=== PATIENT | female | born 1945 | race Caucasian/White ===

== ENCOUNTER → 2017-01-07 | Outpatient (CLI) | payer MEDICARE, OTHER ==
[~2017-01-07] MED LIST: BIO FLEX; CITA20SO PO; LOSA-35 PO; LYSI500T13 PO; POTA10TA86 PO; VENL150C PO
--- OUTSIDE RECORDS SUMMARY | 2017-01-07 12:50 | XMS REPORT | Continuity of Care Document ---
Author Author [facility] Organization [facility] Address Unknown Phone Unavailable Allergies Active Description Code Type Severity Reaction Onset Reported/Identified Relationship to Patient Clinical Status Yes No Known Drug Allergies [id number] Drug Allergy Unknown N/ A 02/14/2012 Medications Problems Date Dx Coded Attending Type Code Diagnosis Diagnosed By 02/14/2012 Ot 518.89 OTHER DISEASES OF LUNG, NEC 02/14/2012 Ot 786.2 COUGH 02/14/2012 Ot V12.61 PERSONAL HISTORY, PNEUMONIA (RECURRENT) 02/14/2012 Ot V15.82 HISTORY OF TOBACCO USE 04/16/2014 VASU HART MD Ot 569.0 ANAL RECTAL POLYP 04/16/2014 VASU HART MD Ot V16.0 FAMILY HX-GI MALIGNANCY 04/16/2014 VASU HART MD Ot V76.51 SCREEN MAL NEOP-COLON 06/02/2015 VLADIMIR GUEVARA, TREASURE Babcock Ot V76.12 02/07/2016 PEDRO PABLO SANTOYO APRN Ot M79.604 02/07/2016 PEDRO PABLO SANTOYO APRN Ot R22.41 02/24/2016 BERNARDA GUADALUPE Ot M25.561 PAIN IN RIGHT KNEE 02/24/2016 BERNARDA GUADALUPE Ot 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 [ WATSON] 02/24/2016 BERNARDA GUADALUPEP Ot M25.561 PAIN IN RIGHT KNEE 02/24/2016 BERNARDA GUADALUPEP Ot 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 [ WATSON] 02/29/2016 PEDRO PABLO SANTOYO APRN Ot M79.604 PAIN IN RIGHT LEG 02/29/2016 PEDRO PABLO SANTOYO APRN Ot R22.41 LOCALIZED SWELLING, MASS AND LUMP, RIGHT 03/15/2016 BERNARDA GUADALUPEP Ot M25.561 PAIN IN RIGHT KNEE 03/15/2016 BERNARDA GUADALUPE Ot 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 [ WATSON] 05/30/2016 Ot V76.12 OTH SCREEN MAMMO-MALIGN NEOPLASM OF ROSA 05/30/2016 Ot 793.89 OTH (ABN) FINDINGS ON RADIOLOGICAL EXAMI 05/30/2016 Ot V76.12 OTH SCREEN MAMMO-MALIGN NEOPLASM OF ROSA 05/30/2016 Ot 610.0 SOLITARY CYST OF BREAST 05/30/2016 COLIN PATEL MD Ot 627.2 SYMPT MENOPAUSE OR FEMALE CLIMACTERIC ST 05/30/2016 COLIN PATEL MD Ot 733.90 BONE CARTILAGE DIS NOS 05/30/2016 COLIN PATEL MD Ot V82.81 SCREENING FOR OSTEOPOROSIS 05/30/2016 COLIN PATEL MD Ot 627.2 SYMPT MENOPAUSE OR FEMALE CLIMACTERIC ST 05/30/2016 COLIN PATEL MD Ot 719.46 JOINT PAIN-L/LEG 05/30/2016 COLIN PATEL MD Ot 721.3 LUMBOSACRAL SPONDYLOSIS 05/30/2016 COLIN PATEL MD Ot 722.52 LUMB/LUMBOSAC DISC DEGEN 05/30/2016 COLIN PATEL MD Ot V76.12 OTH SCREEN MAMMO-MALIGN NEOPLASM OF ROSA 05/30/2016 TANNER GUEVARA, VASU Serna Ot V72.84 EXAM PRE-OPERATIVE NOS 05/30/2016 COLIN PATEL MD Ot 721.0 CERVICAL SPONDYLOSIS 05/30/2016 COLIN PATEL MD Ot 722.52 LUMB/LUMBOSAC DISC DEGEN 05/30/2016 TREASURE GILBERT MD Ot V76.12 OTH SCREEN MAMMO-MALIGN NEOPLASM OF ROSA 05/30/2016 PEDRO PABLO SANTOYO APRN Ot M79.604 PAIN IN RIGHT LEG 05/30/2016 PEDRO PABLO SANTOYO APRN Ot R22.41 LOCALIZED SWELLING, MASS AND LUMP, RIGHT 05/30/2016 BERNARDA GUADALUPE Ot M25.561 PAIN IN RIGHT KNEE 05/30/2016 BERNARDA GUADALUPE Ot 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 [ WATSON] 05/31/2016 TREASURE GILBERT MD Ot Z12.31 ENCNTR SCREEN MAMMOGRAM FOR MALIGNANT NE 06/08/2016 VLADIMIR GUEVARA, TREASURE Babcock Ot Z12.31 ENCNTR SCREEN MAMMOGRAM FOR MALIGNANT NE 06/11/2016 PEDRO PABLO SANTOYO ELEMENTARY TEACHER Ot R92.2 INCONCLUSIVE MAMMOGRAM 06/12/2016 PEDRO PABLO SANTOYO APRN Ot R92.8 OTH ABN AND INCONCLUSIVE FINDINGS ON DX 06/19/2016 Ot V76.12 OTH SCREEN MAMMO-MALIGN NEOPLASM OF ROSA 06/19/2016 Ot 793.89 OTH (ABN) FINDINGS ON RADIOLOGICAL EXAMI 06/19/2016 Ot V76.12 OTH SCREEN MAMMO-MALIGN NEOPLASM OF ROSA 06/19/2016 Ot 610.0 SOLITARY CYST OF BREAST 06/19/2016 COLIN PATEL MD Ot 627.2 SYMPT MENOPAUSE OR FEMALE CLIMACTERIC ST 06/19/2016 COLIN PATEL MD Ot 733.90 BONE CARTILAGE DIS NOS 06/19/2016 COLIN PATEL MD Ot V82.81 SCREENING FOR OSTEOPOROSIS 06/19/2016 COLIN PATEL MD Ot 627.2 SYMPT MENOPAUSE OR FEMALE CLIMACTERIC ST 06/19/2016 COLIN PATEL MD Ot 719.46 JOINT PAIN-L/LEG 06/19/2016 COLIN PATEL MD Ot 721.3 LUMBOSACRAL SPONDYLOSIS 06/19/2016 COLIN PATEL MD Ot 722.52 LUMB/LUMBOSAC DISC DEGEN 06/19/2016 COLIN PATEL MD Ot V76.12 OTH SCREEN MAMMO-MALIGN NEOPLASM OF ROSA 06/19/2016 TANNER GUEVARA, VASU Serna Ot V72.84 EXAM PRE-OPERATIVE NOS 06/19/2016 COLIN PATEL MD Ot 721.0 CERVICAL SPONDYLOSIS 06/19/2016 COLIN PATEL MD Ot 722.52 LUMB/LUMBOSAC DISC DEGEN 06/19/2016 TREASURE GILBERT MD Ot V76.12 OTH SCREEN MAMMO-MALIGN NEOPLASM OF ROSA 06/19/2016 PEDRO PABLO SANTOYO APRN Ot M79.604 PAIN IN RIGHT LEG 06/19/2016 PEDRO PABLO SANTOYO APRN Ot R22.41 LOCALIZED SWELLING, MASS AND LUMP, RIGHT 06/19/2016 BERNARDA GUADALUPE Ot M25.561 PAIN IN RIGHT KNEE 06/19/2016 BERNARDA GUADALUPE [facility] Ot 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 Visit Date/Time Discharge Status Pt. Type Provider Facility Loc./Unit Complaint [id number] 05/12/2015 12:54:00 2014 23:59:59 CLS Outpatient TREASURE GILBERT MD [facility] RAD SCREENING [id number] 06/23/2014 08:46:00 2013 23:59:59 CLS Outpatient COLIN PATEL MD [facility] RAD HYPER FEFLEXIA/ HX OF SPINAL INJURY [id number] 04/16/2014 07:29:00 2013 11:10:00 DIS Outpatient VASU HART MD [facility] SDC POLYPS [id number] 04/14/2014 07:18:00 2013 23:59:59 CLS Outpatient VASU HART MD [facility] PREOP POLYPS [id number] 03/12/2014 11:12:00 2013 23:59:59 CLS Outpatient COLIN PATEL MD [facility] RAD SCREENING [id number] 10/02/2013 10:44:00 2012 23:59:59 CLS Outpatient COLIN PATEL MD [facility] RAD POST MENOPAUSAL [id number] 09/14/2013 16:05:00 2012 23:59:59 CLS Outpatient COLIN PATEL MD [facility] RAD RT HIP PAIN [id number] 01/07/2017 12:46:00 ACT Outpatient PEDRO PABLO SANTOYO APRN [facility] RAD LEFT BREAST NODULES-6 MO F/U [id number] 06/08/2016 07:28:00 ACT Outpatient PEDRO PABLO SANTOYO APRN [facility] RAD ASYMMETRY L BREAST [id number] 05/30/2016 10:55:00 ACT Outpatient TREASURE GILBERT MD [facility] RAD SCREENING [id number] 02/23/2016 07:14:00 ACT Outpatient BERNARDA GUADALUPE [facility] RAD R KNEE PAIN,BAKERS CYST [id number] 02/06/2016 12:53:00 ACT Outpatient PEDRO PABLO SANTOYO APRN [facility] RAD RT LEG SWELLING/PAIN [id number] 02/03/2013 07:25:00 Document Registration [id number] 01/20/2013 14:30:00 Document Registration [id number] 02/14/2012 10:24:00 Document Registration [id number] 12/12/2011 13:16:00 Document Registration
--- NOTE | 2017-01-07 18:36 | Diagnostic Imaging Report ---
Left breast diagnostic mammogram. INDICATION: Left breast nodules-6 MO F/U COMPARISON: 06/08/16. The current study was also evaluated with a Computer Aided Detection (CAD) system. FINDINGS: Heterogeneously dense parenchyma is seen. This may decrease mammographic sensitivity. Three subcentimeter smoothly marginated nodules in the medial aspect of the left breast are again noted without significant change. IMPRESSION: Smoothly marginated subcentimeter nodules in the medial aspect of the left breast are again seen. Prior ultrasound demonstrated 2 simple cysts and failed to evaluate the third nodule which is also probably benign based on the mammographic appearance. Another followup when the patient is due for her bilateral mammogram is recommended in May 2017. ACR BI-RADS Category 3: Probably benign findings. Result letter will be mailed to the patient. Note: At least 10% of breast cancer is not imaged by mammography. Dictated by: Dictated on workstation # [id number]
== END ==
LOC: RAD 12:46
PROVIDERS: ATTEND Nurse Practitioner Family
DX: N63 Unspecified lump in breast (principal)

== ENCOUNTER → 2018-07-14 | Outpatient (CLI) | payer MEDICARE, OTHER ==
--- NOTE | 2018-07-14 10:35 | Diagnostic Imaging Report ---
INDICATION: Routine screening. Comparison is made with prior mammogram from 05/30/2016 and 05/12/2015. 2-D and 3-D bilateral screening mammography was performed with a Computer Aided Detection (CAD) system. FINDINGS: Both breasts are heterogeneously dense, limiting the sensitivity of mammography. Circumscribed nodular densities in left breast are noted. Some of these nodules are slightly larger and some are slightly smaller consistent with waxing and waning of cysts. There are benign calcifications bilaterally. No spiculated mass or malignant appearing microcalcifications are seen. The axillae are unremarkable. IMPRESSION: No mammographic features suspicious for malignancy are identified. ACR BI-RADS Category 2: Benign findings. Result letter will be mailed to the patient. Note: At least 10% of breast cancer is not imaged by mammography. Dictated by: Dictated on workstation # [id number]
== END ==
LOC: RAD 08:18
PROVIDERS: ATTEND Family Medicine
DX: Z12.31 Encounter for screening mammogram for malignant neoplasm of breast (principal)
CPT/HCPCS: 77067

== ENCOUNTER → 2019-08-04 | Outpatient (CLI) | payer MEDICARE, OTHER ==
--- NOTE | 2019-08-04 12:38 | Diagnostic Imaging Report ---
INDICATION: Routine screening. COMPARISON: Comparison is made with prior mammogram from 07/14/2018 and 05/30/2016. 2-D and 3-D bilateral screening mammography was performed. The current study was also evaluated with a Computer Aided Detection (CAD) system. 3-D tomosynthesis was also performed and reviewed. FINDINGS: Both breasts remain heterogeneously dense, limiting the sensitivity of mammography. Benign calcifications are again noted bilaterally. Circumscribed nodules in left breast are stable. No spiculated mass or malignant-appearing microcalcifications are seen. Axillae are unremarkable. IMPRESSION: No mammographic features suspicious for malignancy are identified. ACR BI-RADS Category 2: Benign findings. Result letter will be mailed to the patient. Note: At least 10% of breast cancer is not imaged by mammography. Dictated by: Dictated on workstation # [id number]
== END ==
LOC: RAD 10:58
PROVIDERS: ATTEND Nurse Practitioner Family
DX: Z12.31 Encounter for screening mammogram for malignant neoplasm of breast (principal)
CPT/HCPCS: 77067

== ENCOUNTER → 2019-12-08 | Outpatient (CLI) | payer MEDICARE, OTHER ==
--- NOTE | 2019-12-08 10:47 | Diagnostic Imaging Report ---
INDICATION: Knee pain. TECHNIQUE: Three views of the left knee were obtained. FINDINGS: The alignment is normal. There are mild degenerative changes. There is no fracture or dislocation. The soft tissues are unremarkable. IMPRESSION: Mild degenerative changes; otherwise, unremarkable. Dictated by: Dictated on workstation # [id number]
== END ==
LOC: RAD 10:08
PROVIDERS: ATTEND Nurse Practitioner Family
DX: M17.12 Unilateral primary osteoarthritis, left knee (principal)
CPT/HCPCS: 73562

== ENCOUNTER → 2019-12-17 | Outpatient (CLI) | payer MEDICARE, OTHER ==
--- NOTE | 2019-12-17 19:42 | Diagnostic Imaging Report ---
EXAMINATION: Magnetic resonance imaging of the left knee without intravenous contrast DATE: December 17, 2019. COMPARISON: Knee radiographs December 08, 2019. INDICATION: 74-year-old female, left knee pain and swelling. Sense of instability. TECHNIQUE: Multiplanar, multisequence non contrast enhanced MR imaging was accomplished. FINDINGS: MENISCI: There is a complex multidirectional tear involving the body and posterior horn of the medial meniscus with full-thickness radial components of the tear involving the posterior root attachment of the medial meniscus. There is 2-3 mm current medial meniscal extrusion. There is a very small free edge tear involving the posterior horn of the lateral meniscus. LIGAMENTS AND TENDONS: The anterior and posterior cruciate ligaments are intact. The medial collateral ligament is intact. The iliotibial band, mid third lateral capsular ligament, fibular collateral ligament, biceps femoris tendon and conjoined tendon are intact. The quadriceps tendon and patella ligament are intact. JOINT: There is approximately 50-75% cartilage loss involving the medial margin of the lateral patellar facet cartilage. There is abnormal signal and underlying subchondral edema involving the median patellar ridge. The medial and lateral compartment cartilage is grossly intact. There is a trace knee joint effusion. There is no identified intra-articular body. BONE: There is edema-like signal in the medial femoral condyle with a low signal subchondral line likely relating to a nondisplaced subchondral fracture. This potentially could be fatigue or insufficiency related. Recommend correlation with history. BURSAE AND SOFT TISSUES: There is a partially ruptured Garcia's cyst. IMPRESSION: 1. Extensive complex tear of the medial meniscus, as described above, with currently 2-3 mm medial meniscal extrusion. 2. Small free edge tear involving the posterior horn of the lateral meniscus. 3. Intact anterior and posterior cruciate ligaments. Additional ligaments and tendons are intact. 4. Nondisplaced subchondral fracture of the medial femoral condyle. This potentially could be fatigue or insufficiency related. Recommend correlation with patient history. 5. Moderate patellofemoral compartment osteoarthritis. Small knee joint effusion. Report was faxed to the office of GEOFF Gray at 7:39 p.m., by ezequiel. Dictated by: Dictated on workstation # [id number]
== END ==
LOC: RAD 16:26
PROVIDERS: ATTEND Nurse Practitioner Family
DX: S83.242A Other tear of medial meniscus, current injury, left knee, initial encounter (principal); S83.282A Other tear of lateral meniscus, current injury, left knee, initial encounter; S72.435A Nondisplaced fracture of medial condyle of left femur, initial encounter for closed fracture; M17.12 Unilateral primary osteoarthritis, left knee; M25.462 Effusion, left knee
CPT/HCPCS: 73721

== ENCOUNTER → 2020-01-07 | Outpatient (CLI) | payer MEDICARE, OTHER ==
--- NOTE | 2020-01-07 15:02 | Diagnostic Imaging Report ---
INDICATION: Palpable lump in the left breast. COMPARISON: Correlation is made with prior mammogram from 08/04/2019 and 07/14/2018. EXAMINATION: Unilateral left 2D and 3D diagnostic mammography was performed. A BB marker was placed at the area of palpable abnormality in the medial left breast. FINDINGS: Left breast remains heterogeneously dense, limiting the sensitivity of mammography. There is a circumscribed benign-appearing lesion just deep to the skin surface in the medial left breast, as seen on the CC views. This is not well seen on the MLO or ML views. No other mass is identified. No malignant appearing microcalcifications are seen. IMPRESSION: Circumscribed nodule in the medial left breast, perhaps accounting for the patient's palpable abnormality. Further evaluation of the medial left breast with ultrasound is recommended and will be performed today. ACR BI-RADS Category 0: Incomplete. (Needs additional imaging evaluation). Result letter will be mailed to the patient. Note: At least 10% of breast cancer is not imaged by mammography. Dictated by: Dictated on workstation # [id number]
--- NOTE | 2020-01-07 15:09 | Diagnostic Imaging Report ---
INDICATION: Left breast lump. COMPARISON: Correlation is made with diagnostic mammogram earlier the same day. FINDINGS: Sonographic interrogation of the palpable lump in the left breast was performed. There is a simple cyst at the 8:30 location, 6 cm from the nipple measuring 9 mm x 8 mm x 10 mm. This corresponds to the circumscribed density noted mammographically. No solid lesion is detected. IMPRESSION: Simple cyst at 8:30 location in the left breast, 6 cm from the nipple. This does correspond to the palpable and mammographic abnormality. Patient may return to routine annual screening mammography. ACR BI-RADS Category 2: Benign findings. Dictated by: Dictated on workstation # [id number]
== END ==
LOC: RAD 13:24
PROVIDERS: ATTEND Nurse Practitioner Family
DX: N60.02 Solitary cyst of left breast (principal)
CPT/HCPCS: 76642

== ENCOUNTER 2020-05-12 11:55 | Emergency (ER) | payer MEDICARE, OTHER ==
[~2020-05-12] VITALS: Ht 166 cm; Wt 60.0 kg
--- NOTE | 2020-05-12 12:13 | ED EENT ---
History of Present Illness General Chief Complaint: Nasal Problems Stated Complaint: NOSE BLEED History of Present Illness Date Seen by Provider: May 12, 2020 Time Seen by Provider: 11:55 Initial Comments 74-year-old female brought in for epistaxis by Dr. Messina. She awoke this morning and was noted to have bleeding from both nares. It improved and then returned approximately 11:[address] Messina cauterized in the office, but the bleeding continued. The patient denies taking anticoagulants or aspirin. She does take Aleve occasionally for joint pain. She's never had problems with this in the past. She denies any nausea or vomiting. No trauma to her nose. Timing/Duration: this morning Location: nose Allergies and Home Medications Allergies Coded Allergies: No Known Drug Allergies (Unverified , 02/14/12) Home Medications Citalopram Hydrobromide 20 Mg/10 Ml Solution, 20 MG PO DAILY, (Reported) Losartan/Hydrochlorothiazide 1 Each Tablet, 1 EACH PO DAILY, (Reported) Lysine Hcl 500 Mg Tablet, 500 MG PO DAILY, (Reported) Potassium Chloride 10 Meq Tablet.sa, 1 EACH PO DAILY, (Reported) [Bio Flex ] , BID, (Reported) Patient Home Medication List Home Medication List Reviewed: Yes Review of Systems Review of Systems Constitutional: no symptoms reported, see HPI Nose: see HPI, epistaxis All Other Systems Reviewed Negative Unless Noted: Yes Past Urckkep-Kkzcgq-Ltkcwh Hx Past Med/Social Hx: Reviewed Nursing Past Med/Soc Hx Immunizations Up To Date Date of Pneumonia Vaccine: Oct 16, 2011 Physical Exam Vital Signs Vital Signs - First Documented 05/12/20 11:58 Temp 37.1 Pulse 88 Resp 20 B/P (MAP) 186/108 (134) Pulse Ox 97 O2 Delivery Room Air Height, Weight, BMI Height: 5'5.00" Weight: 138lbs. oz. 62.537635pe; BMI Method: General Appearance: WD/WN, no apparent distress Eyes: bilateral eye normal inspection, bilateral eye PERRL, bilateral eye EOMI Ears: bilateral ear auricle normal, bilateral ear canal normal, bilateral ear TM normal Nose: normal inspection (graying noted to medial aspect, right nare from cautery); No active bleeding, No discharge Mouth/Throat: normal mouth inspection, pharynx normal (No post nasal bleeding or drainage visualized) Neck: non-tender, full range of motion, supple, normal inspection Cardiovascular: normal peripheral pulses, regular rate, rhythm Respiratory: chest non-tender, lungs clear, normal breath sounds Gastrointestinal: normal bowel sounds, non tender, soft Neurologic/Psychiatric: no motor/sensory deficits, alert, normal mood/affect, oriented x 3 Skin: normal color, warm/dry Procedures/Interventions Nasal : Nasal Location: Right Nasal Drops Instilled: Afrin Nasal Procedures: Hemostatic Nasal Ballon (soaked in TXA.) Progress Patient tolerated insertion. Will leave in place and monitor. Progress/Results/Core Measures Results/Orders My Orders Orders - LORI PABON Hydralazine Tablet (Apresoline Tablet) (05/12/20 12:45) Oxymetazoline 0.05% Nasal [place] (Afrin 0. (05/12/20 21:00) Tranexamic Acid Injection (Cyklokapron I (05/12/20 13:00) Oxymetazoline 0.05% Nasal [place] (Afrin 0. (05/12/20 12:59) Medications Given in ED Current Medications Medications Dose Ordered Sig/Ancelmo Route Start Time Stop Time Status Last Admin Dose Admin Hydralazine HCl 10 mg ONCE ONCE PO 05/12/20 12:45 05/12/20 12:46 DC 05/12/20 13:03 10 MG Tranexamic Acid 10 MG/KG ONCE ONCE IV 05/12/20 13:00 05/12/20 13:01 DC 05/12/20 13:02 500 MG Vital Signs/I&O 05/12/20 11:58 Temp 37.1 Pulse 88 Resp 20 B/P (MAP) 186/108 (134) Pulse Ox 97 O2 Delivery Room Air Progress Progress Note : Time: 11:55 Progress Note Patient seen and evaluated, since no active bleeding at this time we'll continue to monitor can consider using TXA on Rhino Packing, if symptoms return. 1245 bleeding resumed from right nare, will insert rhino packing soaked with TXA. Hydralazine 10mg for B/P 165/105. 1345 Rapid Rhino with TXA in place for 45 min, no Post nasal bleeding, removed and 2x2 place, with ice pack to nose. Will monitor. B/P 140/80. Patient's updated on status. 1415 no bleeding from nose and no PND. Packing changed and trace dried blood on 2x2. New packing placed, she will remove at 1700. Discharge instructions and return precautions reviewed with the patient. All questions answered. Departure Impression Primary Impression: Epistaxis Additional Impression: Hypertension Qualified Codes: I10 - Essential (primary) hypertension Disposition: HOME, SELF-CARE Condition: Improved Departure-Patient Inst. Decision time for Depature: 14:15 Referrals: TREASURE MESSINA MD (PCP/Family) Primary Care Physician Patient Instructions: Nosebleeds (DC) Add. Discharge Instructions: Use Afrin nasal spray 2 sprays every 4 hours for the next 3 days. If bleeding returns, 2 sprays of Afrin, pack with gauze and applied gentle pressure externally and ice pack Follow-up with Dr. Messina, as needed. Return to the emergency department for new, urgent health care needs. All discharge instructions reviewed with patient and/or family. Voiced understanding. Copy Copies To 1: TREASURE MESSINA MD, AMY ARNP May 12, 2020 12:13
--- NOTE | 2020-05-12 12:38 | NUR ---
PT HAS NO FURTHER BLEEDING AT THIS TIME, WILL CONTINUE TO MONITOR.
[2020-05-12] MEDS ORDERED: OXYMETAZOLINE (AFRIN) 0.05% NA 30 ML BTL ONE (12:59)
[2020-05-12] MEDS ORDERED: TRANEXAMIC ACID 100 MG/ML 10 ML INJECTION IV ONE (13:00)
--- NOTE | 2020-05-12 14:27 | NUR ---
ASSUMED CARE OF PT.
--- NOTE | 2020-05-12 14:34 | NUR ---
LORI IN TALKING TO THE PT AT THIS TIME
[2020-05-12 14:43] VITALS: BP 131/79
[2020-05-12] MEDS ORDERED: OXYMETAZOLINE (AFRIN) 0.05% NA 30 ML BTL SCH (21:00)
== END 2020-05-12 14:43 | disposition home or self-care (01) ==
LOC: EDUNIT# 11:55 → ER 11:56
DX: I10 Essential (primary) hypertension (principal)
CPT/HCPCS: 99283

== ENCOUNTER → 2020-09-20 | Outpatient (CLI) | payer MEDICARE, OTHER ==
--- NOTE | 2020-09-20 14:28 | Diagnostic Imaging Report ---
INDICATION: Screening. TECHNIQUE: The current study was also evaluated with a Computer Aided Detection (CAD) system. 3-D Tomographic imaging was also performed. COMPARISON: 01/07/2020, 08/04/2019, and 07/14/2018. FINDINGS: The fibroglandular tissue is heterogeneously dense bilaterally. There is an unchanged well-circumscribed density in the medial left breast. There is an additional nodular density in the medial left breast which is slightly more prominent on today's examination. There are benign type calcifications. There is no spiculated lesion or suspicious calcification identified. The skin, nipples, and axillae are unremarkable. IMPRESSION: A small nodular density in the medial left breast has increased in conspicuity since the prior examination. Further evaluation with spot compression views and ultrasound is recommended. ACR BI-RADS Category 0: Incomplete. (Needs additional imaging evaluation). Result letter will be mailed to the patient. Note: At least 10% of breast cancer is not imaged by mammography. Dictated by: Dictated on workstation # [id number]
== END ==
LOC: RAD 10:30
PROVIDERS: ATTEND Nurse Practitioner Family
DX: Z12.31 Encounter for screening mammogram for malignant neoplasm of breast (principal)
CPT/HCPCS: 77063; 77067

== ENCOUNTER → 2020-10-05 | Outpatient (CLI) | payer MEDICARE, OTHER ==
--- NOTE | 2020-10-05 14:33 | Diagnostic Imaging Report ---
INDICATION: Left breast density. Patient presents for additional views. COMPARISON: Correlation is made with prior mammograms dating back to 2013. TECHNIQUE: Unilateral left 2D and 3D diagnostic mammography was performed including spot compression CC, rolled CC, and conventional 90 degree lateral views. FINDINGS: The left breast is heterogeneously dense. The circumscribed nodule in the medial aspect of the left breast, lateral to the dominant circumscribed nodule, has been present on studies dating back to 2016. In fact, in 2016 the lesion was actually larger. This most likely represents a small cyst. No malignant appearing microcalcifications are seen. IMPRESSION: Benign findings in the left breast. The patient may return to routine annual screening mammography. ACR BI-RADS Category 2: Benign findings. Result letter will be mailed to the patient. Note: At least 10% of breast cancer is not imaged by mammography. Dictated by: Dictated on workstation # [id number]
== END ==
LOC: RAD 13:45
PROVIDERS: ATTEND Nurse Practitioner Family
DX: R92.2 Inconclusive mammogram (principal)
CPT/HCPCS: 77065; G0279

== ENCOUNTER → 2020-12-06 | Outpatient (CLI) | payer MEDICARE, OTHER ==
--- NOTE | 2020-12-06 14:00 | Diagnostic Imaging Report ---
INDICATION: Postmenopausal state. COMPARISON: October 02, 2013. FINDINGS: AP Spine L1-L4: [BMD (g/cm2): 1.061] [T-Score: -1.2] [Z-Score: 0.7] [BMD Previous: 1.205] [BMD % Change: -12.0] LT Hip Neck: [BMD (g/cm2): 0.759] [T-Score: -2.0] [Z-Score: -0.1] LT Hip Total: [BMD (g/cm2):0.779] [T-Score:-1.8] [Z-Score: -0.1] [BMD Previous: 0.856] [BMD % Change: -9.0] RT Hip Neck: [BMD (g/cm2):0.718] [T-Score:-2.3] [Z-Score:-0.3] RT Hip Total: [BMD (g/cm2):0.776] [T-score:-1.8] [Z-Score:-0.1] [BMD Previous:0.865] [BMD % Change:-10.3] *Indicates significant change from prior examination based on 95% confidence level. World Health Organization criteria for BMD interpretation classify patients as Normal (T-score at or above -1.0), Osteopenic (T-score between -1.0 and -2.5) or Osteoporotic (T-score at or below -2.5). LIMITATIONS AND MODIFICATION: None. FRACTURE RISK (FRAX SCORE): The ten year probability of (%): Major Osteoporotic Fracture: [21.2] Hip Fracture: [5.9] IMPRESSION: 1. Osteopenia (Low bone mass). 2. No significant change in bone mineral density since prior examination. 3. See below National Osteoporosis Foundation guidelines on when to potentially initiate pharmacologic therapy. Based on the National Osteoporosis Foundation Guidelines, pharmacologic treatment should be initiated in any of the following, unless clinical conditions suggest otherwise: * Any patient with prior fragility fracture of the hip or vertebrae. A spine fracture indicates 5X risk for subsequent spine fracture and 2X risk for subsequent hip fracture. * Osteoporosis (T-score <-2.5). * Postmenopausal women and men age 50 and older with low bone mass/osteopenia (T-score between -1.0 and -2.5) by DXA and 10-year major osteoporotic fracture greater than 20% or a 10-year probability of hip fracture greater than 3%. These fracture risks are supplied above in the FRAX score, if applicable. * Clinician judgement and/or patient preferences may indicate treatment for people with 10-year fracture probabilities above or below these levels. Dictated by: Dictated on workstation # [id number]
== END ==
LOC: RAD 12:30
PROVIDERS: ATTEND Family Medicine
DX: M85.89 Other specified disorders of bone density and structure, multiple sites (principal); E55.9 Vitamin D deficiency, unspecified; Z78.0 Asymptomatic menopausal state
CPT/HCPCS: 77080

== ENCOUNTER 2021-08-07 05:36 | Outpatient (RCR) | payer MEDICARE, OTHER ==
[2021-08-02 12:17] VITALS: BP 146/90
[2021-08-02 13:03] LABS: BASOPHILS % (AUTO) 1 % (0-10); EOSINOPHILS # (AUTO) 0.1 10^3/uL (0.0-0.3); EOSINOPHILS % (AUTO) 2 % (0-10); HEMATOCRIT 42 % (35-52); HEMOGLOBIN 14.2 g/dL (11.5-16.0); LYMPHOCYTES % (AUTO) 18 % (12-44); MEAN CORPUSCULAR HEMOGLOBIN 31 pg (25-34); MEAN CORPUSCULAR HGB CONC 34 g/dL (32-36); MEAN CORPUSCULAR VOLUME 93 fL (80-99); MEAN PLATELET VOLUME 9.4 fL (9.0-12.2); MONOCYTES # (AUTO) 0.5 10^3/uL (0.0-1.0); MONOCYTES % (AUTO) 9 % (0-12); NEUTROPHILS # (AUTO) 3.8 10^3/uL (1.8-7.8); NEUTROPHILS % (AUTO) 70 % (42-75); PLATELET COUNT 263 10^3/uL (130-400); WHITE BLOOD COUNT 5.4 10^3/uL (4.3-11.0)
[2021-08-02 13:10] LABS: POTASSIUM 3.5 MMOL/L (3.6-5.0)
[2021-08-02 13:11] LABS: CALCIUM 9.2 MG/DL (8.5-10.1); INR 0.9 (0.8-1.4); PROTHROMBIN TIME PATIENT 12.5 SEC (12.2-14.7)
[2021-08-02 13:13] LABS: TOTAL PROTEIN 6.9 GM/DL (6.4-8.2)
[2021-08-02 13:14] LABS: BILIRUBIN,TOTAL 0.4 MG/DL (0.1-1.0)
[2021-08-02 13:16] LABS: CREATININE SERUM 0.67 MG/DL (0.60-1.30)
[2021-08-02 13:20] LABS: BILIRUBIN,URINE NEGATIVE (NEGATIVE); CLARITY,URINE CLEAR; COLOR,URINE YELLOW; GLUCOSE, URINE (UA) NEGATIVE (NEGATIVE); KETONES,URINE NEGATIVE (NEGATIVE); LEUKOCYTE ESTERASE ,URINE NEGATIVE (NEGATIVE); NITRITE,URINE NEGATIVE (NEGATIVE); PROTEIN,URINE NEGATIVE (NEGATIVE)
--- NOTE | 2021-08-02 13:21 | Diagnostic Imaging Report ---
EXAMINATION: CHEST (PA AND LATERAL) CLINICAL INDICATION: 75-year-old female, preoperative exam prior to knee replacement. COMPARISON: May 23, 2011. FINDINGS: Heart size and mediastinal contours are unchanged. There is no identified pneumothorax. There is no pleural effusion. There is no identified focal airspace consolidation. IMPRESSION: 1. No identified acute cardiopulmonary abnormality. Dictated by: Dictated on workstation # [id number]
[2021-08-02 13:26] LABS: ERYTHROCYTE SEDIMENTATION RATE 9 MM/HR (0-30)
[2021-08-02 14:05] LABS: BACTERIA,URINE NEGATIVE /HPF; SQUAMOUS EPITHELIAL CELL,UR 0-2 /HPF
[~2021-08-07] VITALS: Ht 165.1 cm; Wt 61.3 kg
[~2021-08-07 05:36] MED LIST changes: +AMLO-251 PO; +DULO60CA59 PO; +HYDR25TA4 PO; +LOSA100T57 PO; +POTA10TA36 PO
== END 2021-08-07 08:52 | disposition home or self-care (01) ==
LOC: PREOP 05:36
PROVIDERS: ATTEND Orthopaedic Surgery
DX: Z01.812 Encounter for preprocedural laboratory examination (principal); Z01.810 Encounter for preprocedural cardiovascular examination; M17.12 Unilateral primary osteoarthritis, left knee
CPT/HCPCS: 36415; 71046; 80053; 81000; 85025; 85610; 85652; 86850; 86900; 86901; 87081; 87635; 93005

== ENCOUNTER 2021-08-09 06:06 | Inpatient (IN) | payer MEDICARE, OTHER ==
--- NOTE | 2021-08-03 06:09 | HISTORY AND PHYSICAL ---
DATE OF SERVICE: ADMISSION HISTORY AND PHYSICAL This will be for inpatient admission on 08/09/2021 for left total knee arthroplasty. The patient will require regular inpatient admission due to pain management, need for physical therapy and comorbidities. HISTORY OF PRESENT ILLNESS: The patient is a 75-year-old female with longstanding progressive left knee pain. She has undergone treatment with injections as well as arthroscopy. She has a large osteochondral defect of her medial compartment with associated medial arthrosis. Due to functional impairment and failure to improve with conservative measures, the patient has elected to proceed with surgical intervention. REVIEW OF SYSTEMS: No chest pain, no shortness of breath, no dysuria. PAST MEDICAL HISTORY: Allergic rhinitis, depression, fatigue, hypertension. PAST SURGICAL HISTORY: Right knee arthroscopy and left knee arthroscopy. MEDICATIONS: Cymbalta, potassium, losartan, esterase, vitamin D. SOCIAL HISTORY: The patient denies alcohol and tobacco use. ALLERGIES: No known drug allergies. PHYSICAL EXAMINATION: GENERAL: The patient is well-developed, well-nourished, in no acute distress. HEENT: Normocephalic, atraumatic. Pupils are equal, round and reactive to light. Oropharynx is clear. NECK: Supple, no lymphadenopathy. LUNGS: Clear to auscultation bilaterally. HEART: Regular rate and rhythm. ABDOMEN: Soft, nontender, nondistended. EXTREMITIES: The left knee demonstrates varus alignment. She has large effusion. There is no erythema or warmth. She ambulates with an antalgic gait. Range of motion is 0/120. No varus or valgus laxity. Negative anterior and posterior drawer. IMPRESSION: Severe left knee osteoarthritis, unresponsive to conservative measures. PLAN: Left total knee arthroplasty. The risks, benefits, options, ramifications and recovery have been discussed at length with the patient. She understands and wishes to proceed. This will be for inpatient admission on 08/09/2021 Job ID: [id number] DocumentID: [id number] Dictated Date: 07/24/2021 10:55:21 Digital Design Engineer Date: 07/24/2021 11:18:50 Dictated By: SOBEIDA VANN MD
[~2021-08-09] VITALS: Ht 165.1 cm; Wt 61.3 kg
[2021-08-09] VITALS (11 sets, daily range): BP systolic 101–151; BP diastolic 69–92
[2021-08-09] MEDS ORDERED: CEFUROXIME INJECTION 1,500 MG in WATER (STERILE) FOR INJECTION 15 ML IV ONE (06:15)
[2021-08-09] MEDS ORDERED: NS IV 500 ML 500 ML IV PRN (06:15)
[2021-08-09] MEDS ORDERED: ROPIVACAINE 5MG/ML 30ML VIAL ONE (06:47)
[2021-08-09] MEDS ORDERED: MIDAZOLAM 2 MG/2 ML (VERSED) VIAL ONE (06:50)
[2021-08-09] MEDS ORDERED: proPOfol 200 MG/20 ML (DIPRIVAN) VIAL IV ONE (07:06)
[2021-08-09] MEDS ORDERED: LIDOCAINE PF 2% 5 ML (XYLOCAINE) VIAL ONE (07:06)
[2021-08-09] MEDS ORDERED: ONDANSETRON 4 MG/2 ML (SDV) Z0FRAN ONE (07:06)
[2021-08-09] MEDS ORDERED: fentaNYL INJ 100 MCG/2 ML AMP ONE (07:06)
[2021-08-09] MEDS: LACTATED RINGERS 1,000 ML IV PRN ×2 (07:08→08:20)
--- NOTE | 2021-08-09 07:29 | Progress Note-Pre Operative ---
Pre-Operative Progress Note H&P Reviewed The H&P was reviewed, patient examined and no changes noted. Date Seen by Provider: Aug 09, 2021 Time Seen by Provider: 07:20 Date H&P Reviewed: Aug 09, 2021 Time H&P Reviewed: 07:11 Pre-Operative Diagnosis: left knee primary osteoarthritis SOBEIDA VANN MD Aug 09, 2021 07:29
[2021-08-09] MEDS ORDERED: diphenhydrAMINE 50 MG/ML INJ (BENADRYL) IVP PRN (07:30)
[2021-08-09] MEDS ORDERED: NALOXONE 0.4 MG/ML 1 ML (NARCAN) VIAL IV PRN (07:30)
[2021-08-09] MEDS ORDERED: morphine PCA 100 MG/100 ML BAG IV PRN (07:30)
--- NOTE | 2021-08-09 07:30 | Progress Note-Post Operative ---
Post-Operative Progess Note Surgeon (s)/Telephone Operator Receptionist (s) Surgeon SOBEIDA VANN MD Telephone Operator Receptionist: Roberto Alaniz Pre-Operative Diagnosis left knee primary osteoarthritis Post-Operative Diagnosis left knee primary osteoarthritis Procedure & Operative Findings Date of Procedure 08/09/21 Procedure Performed/Findings left total knee arthroplasty Anesthesia Type GETA Estimated Blood Loss Estimated blood loss (mL): Minimal Specimens/Packing Specimens Removed none Packing: none SOBEIDA VANN MD Aug 09, 2021 07:30
--- NOTE | 2021-08-09 07:34 | D/C HH Face to Face Order ---
D/C Face to Face Orders Reconcile Patient Problems Problems Reviewed?: Yes Instructions for Patient Via [facility], Patient Instructions/FollowUp: three weeks Physician to follow Patient: three weeks Discharge Diet for Home: Regular Diet Patient Data-Allergies,Ht & Wt Patient Allergies: Coded Allergies: nut - unspecified (Verified Allergy, Unknown, Anaphylaxis, 08/09/21) Height (Feet): 5 Height (Inches): 5.00 Weight (Pounds): 138 Home Health Need/Face to Face Date of Face to Face: Aug 09, 2021 Clinical Findings: Instability, Muscle weakness, Pain with ambulation, Unsteady gait I have seen Pt ujvd-[id number]: Yes Discharged To: Home Diagnosis/Conditions: left total knee arthroplasty Patient is Homebound due to: Zulema fall risk due to instabilty, Muscle weakness, Pain w/ambulation Homebound Status Due to the above stated illness, injury or surgical procedure (medical condition or diagnosis) and associated clinical findings, the patient is h omebound because of his/her inability to leave home except with aid of a supportive device and/or person AND leaving the home requires a considerable and taxing effort or is medically contraindicated. Pt req the following assistanc: Walker Home Health Nursing Orders Home Health Services Order: Physical Therapy-Evaluate & Treat DC left knee bridgette and apply steri strips 08/23/21 Therapy Orders Therapy Orders: Physical Therapy, PT to assess for OT Therapy Specific Orders: Eval assistive deivces, Teach enviro modifications/ safety, Gait training, Increase strength/endurance, Provider maintenance therapy, Restore ROM Certify Stmt I certify that this patient is under my care and that I, a nurse practitioner or a physician; a technical support assistant working with me, had a face to face encounter that - meets the physician face to face encounter requirements with this patient as dated. SOBEIDA VANN MD Aug 09, 2021 07:34
[2021-08-09] MEDS ORDERED: INTRA-ARTICULAR IU ONE ×5 (07:45)
[2021-08-09] MEDS ORDERED: HYDROmorphone 2 MG/ML VIAL (DILAUDID) ONE (08:24)
[2021-08-09] MEDS ORDERED: SEVOFLURANE (ULTANE) 15 ML INHAL SOLN ONE (09:09)
[2021-08-09] MEDS ORDERED: morphine INJ 10 MG/ML 1ML (SYR OR VIAL) IVP ONE (09:30)
[2021-08-09] MEDS ORDERED: ONDANSETRON 4 MG/2 ML (SDV) Z0FRAN IVP PRN (09:30)
[2021-08-09] MEDS ORDERED: PROMETHAZINE INJ 25 MG/ML (PHENERGAN) AMP IVP ONE (09:30)
[2021-08-09] MEDS ORDERED: HYDROmorphone 2 MG/ML VIAL (DILAUDID) IV ONE (09:30)
[2021-08-09] MEDS ORDERED: MEPERIDINE (DEMEROL) INJ 50 MG/ML IVP ONE (09:30)
[2021-08-09] MEDS ORDERED: morphine INJ 10 MG/ML 1ML (SYR OR VIAL) ONE (09:31)
[2021-08-09] MEDS ORDERED: MEPERIDINE (DEMEROL) INJ 50 MG/ML ONE (09:39)
--- NOTE | 2021-08-09 09:58 | Diagnostic Imaging Report ---
Indication: Left knee surgery. TIME OF EXAM: 9:31 AM 2 views of left knee demonstrate postop changes of total knee arthroplasty. Prosthetic elements are in good position. No fracture or loosening is seen. There are overlying skin bridgette. IMPRESSION: Satisfactory postop appearance to the left knee. Dictated by: Dictated on workstation # [id number]
--- NOTE | 2021-08-09 10:08 | Progress Note ---
Standard Progress Note Progress Notes/Assess & Plan Date Seen by a Provider: Aug 09, 2021 Time Seen by a Provider: 10:07 Progress/Assessment & Plan post op check no complaints radiographs--HW well positioned without fracture LLE--2 plus DP pulse with brisk cap refill. Intact DF and PF of toes and ankle with intact sensation to light touch throughout s/p LTKA mobilize as able SOBEIDA VANN MD Aug 09, 2021 10:08
--- NOTE | 2021-08-09 14:15 | Physical Therapy Evaluation ---
PT Evaluation-General Medical Diagnosis Admission Date Aug 09, 2021 at 06:06 Medical Diagnosis: Left TKA Onset Date: Aug 09, 2021 Therapy Diagnosis Therapy Diagnosis: Gait deficit, strength deficit Height/Weight Height (Feet): 5 Height (Inches): 5.00 Weight (Pounds): 138 Referral Physician: Dr. Malik Reason for Referral: Evaluation/Treatment Social History Home: Single Level Current Living Status: Spouse Entry Into Home: Stairs With Railing PT Steps Into Home: 3 Prior Prior Level of Function SCALE: Activities may be completed with or without assistive devices. 8-Rvzlzwjjmg-ueajjgp completes the activity by him/herself with no assistance from a helper. 5-Set-up or Clean-up Assistance-helper sets up or cleans up; patient completes activity. Pinson assists only prior to or following the activity. 4-Supervision or Touching Assistance-helper provides verbal cues and/or touching/steadying and/or contact guard assistance as patient completes activity. Assistance may be provided throughout the activity or intermittently. 3-Partial/Moderate Assistance-helper does LESS THAN HALF the effort. Pinson lifts, holds or supports trunk or limbs, but provides less than half the effort. 2-Substantial/Maximal Assistance-helper does MORE THAN HALF the effort. Pinson lifts or holds trunk or limbs and provides more than half the effort. 2-Cqrawloqx-iqzhxc does ALL the effort. Patient does none of the effort to complete the activity. Or, the assistance of 2 or more helpers is required for the patient to complete the activity. If activity was not attempted, code reason: 7-Patient Refused. 9-Not Applicable-not attempted and the patient did not perform the activity before the current illness, exacerbation or injury. 10-Not Attempted due to Environmental Limitations-(lack of equipment, weather restraints, etc.). 88-Not Attempted due to Medical Conditions or Safety Concerns. Bed Mobility: 6 Transfers (B,C,W/C): 6 Gait: 6 Stairs: 6 Indoor Mobility (Ambulation): Independent Stairs: Independent Prior Devices Use: None Has FWW at home PT Evaluation-Current Subjective Patient drowsy upon PT arrival, agreeable to treatment however. Patient sitting up in in bed upon with in room. Currently rates pain at 0/10. Objective Patient Orientation: Person, Place, Time, Situation Attachments: Oxygen, Polar Pack, IV ROM/Strength ROM Lower Extremities Left knee Extension 10 degrees from neutral AROM Left knee Flexion 80 degrees AROM Strength Lower Extremities Right 4+/5 grossly Left knee flexion 3-/5 Left knee extension 3-/5 Sensory Vision: Wears Glasses Hearing: Functional Sensation Right Lower Extremit: Intact Sensation Left Lower Extremity: Intact Transfers Roll Left to Right (QC): 4 Sit to Lying (QC): 4 Lying to Sitting/Side of Bed(Q: 4 Sit to Stand (QC): 4 Chair/Rgd-dy-Buuxs Xfer(QC): 3 Toilet Transfer (QC): 3 Gait Does the Patient Walk?: Yes Mode of Locomotion: Walk Anticipated Mode of Locomotion: Walk Walk 10 feet (QC): 3 Gait Assistive Device: FWW Wheelchair Training Does the Pt Use a Wheelchair?: No Balance Sitting Static: Good Sitting Dynamic: Good Standing Static: Fair Standing Dynamic: Fair Treatment Visit, Eval Low, Gait, CPM, CPM pads Assessment/Needs Patient tolerated treatment well. Demonstrates moderate limitations in left knee ROM and strength consistent with recent surgery. Patient performs all observed bed mobility and transfers with CGA/SBA. Patient ambulates 15 feet with FWW, with min A and verbal cues for safety, progression, balance and proper use of FWW. Patient ambulates with antalgic gait pattern with decreased stance time on left LE, shortened stride length, lacks ~10 degrees TKE during stance phase, and decreased endurance. Patient in chair post treatment with all needs met, nursing notified, call light in hand, all needs met, in room. Rehab Potential: Good Equipment Needs Unsure at this time PT Fpc Goals Snaker Driving Horses Goals PT Snaker Driving Horses Goals Time Frame: Aug 23, 2021 Roll Left & Right (QC): 6 Sit to Lying (QC): 6 Lying-Sitting on Side/Bed(QC): 6 Sit to Stand (QC): 6 Chair/Kfj-go-Votke Xfer(QC): 5 Toilet Transfer (QC): 5 Car Transfer (QC): 5 Does the Patient Walk: Yes Walk 10 feet (QC): 5 Walk 50ft with 2 Turns (QC): 5 Walk 150 ft (QC): 5 1 Step (curb) (QC): 4 4 Steps (QC): 4 Does the Pt use WC or Scooter?: No PT Plan Problem List Problem List: Activity Tolerance, Functional Strength, Safety, Balance, Gait, Transfer, Bed Mobility, ROM Treatment/Plan Treatment Plan: Continue Plan of Care Treatment Plan: Bed Mobility, Education, Functional Activity [place], Functional Strength, Group Therapy, Gait, Safety, Therapeutic Exercise, Transfers Treatment Duration: Oct 25, 2021 Frequency: 11 times per week Safety Risks/Education Patient Education: Gait Training, Transfer Techniques, Reviewed Precautions Teaching Recipient: Patient, Family Teaching Methods: Demonstration, Discussion Response to Teaching: Verbalize Understanding, Return Demonstration Discharge Recommendations Target Placement Home with Time/GCodes Time In: 1310 Time Out: 1350 Total Billed Treatment Time: 40 Total Billed Treatment Visit, walker Pichardo, CPM, CPM pads VIJAY ANTOINE PT Aug 09, 2021 14:15
--- NOTE | 2021-08-09 14:44 | OPERATIVE REPORT ---
DATE OF SERVICE: 08/09/2021 PREOPERATIVE DIAGNOSIS: Left knee primary osteoarthritis. POSTOPERATIVE DIAGNOSIS: Left knee primary osteoarthritis. PROCEDURE PERFORMED: Left total knee arthroplasty. SURGEON: Vishal Malik MD ELECTRIC METER TECHNICIAN: Roberto Alaniz, who assisted throughout the procedure and closed the incision. ANESTHESIA: General endotracheal by Dain Ramires CRNA. TOURNIQUET TIME: 63 minutes at 300 mmHg. ESTIMATED BLOOD LOSS: Minimal. DRAINS: None. COMPLICATIONS: None. POSTOPERATIVE PLAN: Routine total knee protocol. The patient was transferred to the recovery room awake and in stable condition. MATERIALS: Microport cemented size 4 femur, cemented size 4 tibia with a 10 mm insert and a cemented size 29 patellar button. STATEMENT OF MEDICAL NECESSITY: The patient is a 75-year-old female with a longstanding progressive left knee pain. 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 She has undergone treatment with arthroscopy, injections, anti-inflammatories, activity modifications and rest without relief. Due to functional impairment and failure to improve with conservative measures, the patient has elected to proceed with surgical intervention. DESCRIPTION OF PROCEDURE: After risks and benefits of the procedure were discussed and questions were answered, an informed consent was signed and placed on chart, the operative site was confirmed in the preoperative holding area initialed by the surgeon. The patient was then transferred to the operating room and after adequate levels of general endotracheal anesthetic were obtained, a timeout was called, confirming the operative site. The left lower extremity was prepped and draped in the usual sterile fashion. With the leg elevated and the knee flexed, the tourniquet was inflated to 300 mmHg. Standard anterior approach was utilized. Hemostasis was obtained with the cautery. Medial parapatellar arthrotomy was performed leaving 1 cm cuff on the patella for later reattachment. A portion of the fat pad was resected. Subperiosteal release was performed on the proximal medial tibia being careful to stay on the bony surface. The ACL was resected. Intramedullary guide was passed into the femur. The distal cutting block was placed and distal cut was made. The femur was sized to a size 4. The 4 cutting block was placed parallel to the epicondylar axis and cuts were made from posterior to anterior. The subperiosteal release was then carefully performed on posterior distal femur, being careful to stay on the bony surface. The intramedullary guide was passed into the tibia. The cutting block was placed. The drop jayce transected the intermalleolar axis and the cut was made. The four baseplate was placed and again the drop jayce transected the intermalleolar axis. This was then prepared with the drill and keel punch. The femoral trial was placed and the trochlear cut was made. A 10 mm insert was placed. The patella was then prepared by resecting 10 mm off the undersurface. The peg guide was placed and peg holes were drilled. The 29 patellar trial was placed. The knee was then taken through range of motion. Full extension was easily obtained and 120 degrees of flexion with gravity was easily obtained. The patella tracked well. There was no anterior/posterior or medial/lateral laxity in flexion or extension. The trials were removed. The joint was irrigated with pulse lavage. The bone ends were irrigated and dried. The tibial baseplate was cemented into position. Excessive cement was removed. The superior surface was irrigated and dried and the polyethylene insert was placed. The distal femur was irrigated and dried and the femoral prosthesis was cemented into position. The knee was brought out into full extension. The undersurface of the patella was irrigated and dried. The patellar button was cemented into position and held there until the cement had cured. Excessive cement was removed. Prior to placing the prosthesis, the periarticular block was placed in the posterior capsule, medial and lateral retinaculum, extensor mechanism, and subcutaneous tissues. Once the cement had cured, the knee was taken through the range of motion. Full extension was easily obtained and 120 degrees of flexion with gravity was easily obtained. The patella tracked well. There was no anterior/posterior or medial/lateral laxity in flexion or extension. The joint was further irrigated with a pulse lavage. Arthrotomy was closed with #2 Tevdek in a azziol-gq-wrirt interrupted fashion. Knee was flexed. The repair was stable and the patella tracked well. Subcutaneous tissues were irrigated with a pulse lavage using a total of 6 liters throughout the procedure. A 0 Vicryl was used for the deep subcutaneous layer, 2-0 Vicryl for the superficial subcutaneous layer, and bridgette were used on the skin. A soft dressing was applied. The tourniquet was deflated. The patient was transferred to the recovery room awake and in stable condition. Job ID: [id number] DocumentID: [id number] Dictated Date: 08/09/2021 09:24:39 Roving Changer Date: 08/09/2021 14:43:44 Dictated By: VISHAL MALIK MD
[2021-08-09] MEDS: SENNA W/DOCUSATE (SENOKOT S) TABLET PO SCH ×2 (17:06→20:54)
[2021-08-09] MEDS: CEFUROXIME INJECTION 750 MG in WATER (STERILE) FOR INJECTION 10 ML IV SCH ×2 (17:25→21:01)
[2021-08-09] MEDS: NS IV 1000 ML 1,000 ML IV SCH ×2 (17:30→21:01)
[2021-08-09] MEDS: oxyCODONE/APAP 5/325MG (PERCOCET 5) TABLET PO PRN (18:11)
[2021-08-10 00:09] VITALS: BP 149/89
[2021-08-10] MEDS: NS IV 1000 ML 1,000 ML IV SCH ×2 (01:06→13:11)
[2021-08-10] MEDS: ONDANSETRON 4 MG/2 ML (SDV) Z0FRAN IVP PRN ×2 (01:23→14:11)
[2021-08-10 04:15] VITALS: BP 145/67
[2021-08-10] MEDS: MULTIVIT W/MINERALS TAB (THERAGRAN M) PO SCH (05:48)
[2021-08-10 05:58] LABS: HEMOGLOBIN 11.6 g/dL (11.5-16.0)
--- NOTE | 2021-08-10 08:06 | Progress Note ---
Standard Progress Note Progress Notes/Assess & Plan Date Seen by a Provider: Aug 10, 2021 Time Seen by a Provider: 08:05 Progress/Assessment & Plan post op check no complaints radiographs--HW well positioned without fracture LLE--2 plus DP pulse with brisk cap refill. Intact DF and PF of toes and ankle with intact sensation to light touch throughout s/p LTKA mobilize as able Final Diagnosis no complaints Vital Signs Date Time Temp Pulse Resp B/P (MAP) Pulse Ox O2 Delivery O2 Flow Rate FiO2 08/10/21 07:36 Nasal Cannula 2.00 08/10/21 04:15 36.9 82 18 145/67 (93) 98 Nasal Cannula 2.00 08/10/21 00:09 37.2 82 18 149/89 (109) 96 Nasal Cannula 2.00 08/09/21 22:41 95 Room Air 08/09/21 20:09 36.6 84 20 150/78 (102) 95 Nasal Cannula 2.00 08/09/21 16:13 36.9 86 18 143/80 (101) 94 Nasal Cannula 2.00 08/09/21 12:15 36.8 88 12 133/72 (92) 92 Room Air 08/09/21 10:15 Nasal Cannula 2 08/09/21 10:05 16 142/89 (106) 95 Nasal Cannula 2 08/09/21 10:00 36.7 18 138/92 (107) 94 Nasal Cannula 2 08/09/21 09:50 20 137/80 (99) 94 Nasal Cannula 2 08/09/21 09:45 Nasal Cannula 2 08/09/21 09:40 22 146/88 (107) 94 Nasal Cannula 2 08/09/21 09:30 22 146/92 (110) 96 OxyMask 10 08/09/21 09:20 16 127/87 (100) 96 OxyMask 10 08/09/21 09:14 OxyMask 10 08/09/21 09:14 36.4 20 101/69 (80) 99 OxyMask 10 I & O 08/10/21 07:00 Intake Total 2055 ml Balance 2055 ml Laboratory Tests Test 08/10/21 05:48 Range/Units Hemoglobin 11.6 11.5-16.0 g/dL Hematocrit 35 35-52 % LLE--dressing intact. NVI. No calf tenderness. s/p LTKA PT/OT SOBEIDA VANN MD Aug 10, 2021 08:06
[2021-08-10 08:09] VITALS: BP 144/69
[2021-08-10] MEDS: oxyCODONE/APAP 5/325MG (PERCOCET 5) TABLET PO PRN ×4 (08:36→23:20)
--- NOTE | 2021-08-10 08:39 | Consultation ---
History of Present Illness History of Present Illness Patient Consulted On(adolph/time) 08/10/21 08:39 Allergies and Home Medications Allergies Coded Allergies: nut - unspecified (Verified Allergy, Unknown, Anaphylaxis, 08/09/21) Patient Home Medication List Amlodipine Besylate (Amlodipine Besylate) 10 Mg Tablet, 10 MG PO DAILY, (Reported) Entered as Reported by: MARC ROBBINS on 08/02/211321 Last Action: Reviewed Duloxetine HCl (Duloxetine HCl) 60 Mg Capsule.dr, 60 MG PO DAILY, (Reported) Entered as Reported by: MARC ROBBINS on 08/02/211321 Last Action: Reviewed Hydrochlorothiazide (Hydrochlorothiazide) 25 Mg Tablet, 25 MG PO DAILY, (Reported) Entered as Reported by: [facility] ROBBINS on 08/02/211321 Last Action: Reviewed Losartan Potassium (Losartan Potassium) 100 Mg Tablet, 100 MG PO DAILY, (Reported) Entered as Reported by: MARC ROBBINS on 08/02/211321 Last Action: Reviewed Potassium Chloride (Potassium Chloride) 10 Meq Tab.er.prt, 10 MEQ PO DAILY, (Reported) Entered as Reported by: MARC ROBBINS on 08/02/211321 Last Action: Reviewed Past Hdurvvi-Lfplcu-Weysqp Hx Patient Social History Tobacco Use?: No Tobacco type used: Cigarettes Smoking Status: Former Smoker Smokeless Tobacco Frequency: Former User Use of E-Cig and/or Vaping dev: No Use of E-Cig and/or Vaping Rahul: Never a User Substance use?: No Alcohol Use?: Yes Alcohol type: Beer, Wine Alcohol Frequency: Couple times a week Pt feels they are or have been: No Immunizations Up To Date Date of Influenza Vaccine: Jul 29, 2021 First/Initial COVID19 Vaccinat: December 2020 Second COVID19 Vaccination Adolph: January 2021 Date of Pneumonia Vaccine: Oct 16, 2011 Seasonal Allergies Seasonal Allergies: Yes Current Status Advance Directives: No Communicates: Verbally Primary Language: Czech Preferred Spoken Language: Czech Is interpretation needed?: No Sensory deficits: Other Additional sensory deficits: wears glasses Implanted or Applied Medical D: None Past Medical History Surgeries: Orthopedic Hypertension Headaches /Migraines Arthritis Anxiety, Depression Blood Disorders: No Physical Exam Vital Signs Vital Signs - First Documented 08/09/21 06:05 Temp 36.6 Pulse 75 Resp 18 B/P (MAP) 151/91 (111) Pulse Ox 94 O2 Delivery Room Air Capillary Refill : Less Than 3 Seconds Height, Weight, BMI Height: 5'5.00" Weight: 138lbs. oz. [id number]; 22.48 BMI Method: TREASURE GILBERT MD Aug 10, 2021 08:39
[2021-08-10] MEDS ORDERED: ONDANSETRON 4 MG/2 ML (SDV) Z0FRAN IVP ONE (09:00)
[2021-08-10] MEDS: ASPIRIN E.C. 81 MG (ECOTRIN) TAB PO SCH (09:07)
[2021-08-10] MEDS: amLODIPine 10 MG (NORVASC) TAB PO SCH (09:08)
[2021-08-10] MEDS: LOSARTAN 100 MG (COZAAR) TABLET PO SCH (09:08)
[2021-08-10] MEDS: SENNA W/DOCUSATE (SENOKOT S) TABLET PO SCH ×2 (09:08→20:18)
[2021-08-10] MEDS: ENOXAPARIN 30 MG/0.3 ML (LOVENOX) SYR SC SCH ×2 (09:09→20:18)
--- NOTE | 2021-08-10 09:13 | Anesthesia-General Post-Op ---
General Patient Condition Mental Status/LOC: Same as Preop Cardiovascular: Satisfactory Nausea/Vomiting: Absent Respiratory: Satisfactory Pain: Controlled Complications: Absent Post Op Complications Complications None Follow Up Care/Instructions Patient Instructions None needed. Anesthesia/Patient Condition Patient Condition Patient is doing well, no complaints, stable vital signs, no apparent adverse anesthesia problems. No complications reported per nursing. VIDHI PINEDO CRNA Aug 10, 2021 09:13
--- NOTE | 2021-08-10 10:47 | Physical Therapy Daily Note ---
PT Daily Note-Current Subjective Patient agrees to PT. Pain Numeric Pain Scale: 7 Location: Left Location Body Site: Knee Pain Description: Acute Mental Status Patient Orientation: Normal For Age Attachments: IV Transfers SCALE: Activities may be completed with or without assistive devices. 8-Epmjbzshrm-ixkehup completes the activity by him/herself with no assistance from a helper. 5-Set-up or Clean-up Assistance-helper sets up or cleans up; patient completes activity. [place] assists only prior to or following the activity. 4-Supervision or Touching Assistance-helper provides verbal cues and/or touching/steadying and/or contact guard assistance as patient completes activity. Assistance may be provided throughout the activity or intermittently. 3-Partial/Moderate Assistance-helper does LESS THAN HALF the effort. [place] lifts, holds or supports trunk or limbs, but provides less than half the effort. 2-Substantial/Maximal Assistance-helper does MORE THAN HALF the effort. [place] lifts or holds trunk or limbs and provides more than half the effort. 1-Qyaquzxui-ennhdr does ALL the effort. Patient does none of the effort to complete the activity. Or, the assistance of 2 or more helpers is required for the patient to complete the activity. If activity was not attempted, code reason: 7-Patient Refused. 9-Not Applicable-not attempted and the patient did not perform the activity before the current illness, exacerbation or injury. 10-Not Attempted due to Environmental Limitations-(lack of equipment, weather restraints, etc.). 88-Not Attempted due to Medical Conditions or Safety Concerns. Lying to Sitting/Side of Bed(Q: 4 Sit to Stand (QC): 4 Chair/Adc-ag-Zcrot Xfer(QC): 4 Gait Training Distance: 150' Walk 10 feet (QC): 4 Walk 50 ft with 2 Turns(QC): 4 Walk 150 ft (QC): 4 Gait Assistive Device: FWW slow, step to gait sequence Exercises Supine Ex: Ankle pumps, Quad Set, Heel Slides, Straight leg raise Supine Reps: 15 Seated Therapy Exercises: Long arc quads Standing Reps: 15 Assessment Patient requires time to work "through" the pain. Patient progressing with treatment plan PT Tar Processing Technician Goals Tar Processing Technician Goals PT Tar Processing Technician Goals Time Frame: Aug 23, 2021 Roll Left & Right (QC): 6 Sit to Lying (QC): 6 Lying-Sitting on Side/Bed(QC): 6 Sit to Stand (QC): 6 Chair/Rhf-br-Butmw Xfer(QC): 5 Toilet Transfer (QC): 5 Car Transfer (QC): 5 Does the Patient Walk: Yes Walk 10 feet (QC): 5 Walk 50ft with 2 Turns (QC): 5 Walk 150 ft (QC): 5 1 Step (curb) (QC): 4 4 Steps (QC): 4 Does the Pt use WC or Scooter?: No PT Plan Treatment/Plan Treatment Plan: Continue Plan of Care Treatment Plan: Bed Mobility, Education, Functional Activity [place], Functional Strength, Group Therapy, Gait, Safety, Therapeutic Exercise, Transfers Treatment Duration: Oct 25, 2021 Frequency: 11 times per week Time/GCodes Time In: 828 Time Out: 852 Total Billed Treatment Time: 24 Total Billed Treatment 1 visit GT 13 min EX 11 min STEPHEN ESCOBAR PT Aug 10, 2021 10:47
[2021-08-10 11:47] VITALS: BP 144/71
--- NOTE | 2021-08-10 12:05 | Occupational Therapy Eval ---
OT Evaluation-General/PLF Medical Diagnosis Admission Date Aug 09, 2021 at 06:06 Medical Diagnosis: Left TKA Onset Date: Aug 09, 2021 Therapy Diagnosis Therapy Diagnosis: Impaired endurance, balance, flexibility, adls Height/Weight Height (Feet): 5 Height (Inches): 5.00 Weight (Pounds): 138 Weight Bear Status Weight Bearing Restriction: Weight Bearing/Tolerated Location Restriction: L LE Referral Physician: Dr. Malik Referral Reason: Evaluation/Treatment Medical History Current History post op day 1 TKA. Pt reports indep with all adls/iadls. 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 Social History Home: Single Level Current Living Status: Spouse Entry Into Home: Stairs Without Railing Steps Into Home: 3 ADL-Prior Level of Function SCALE: Activities may be completed with or without assistive devices. 5-Ocodeulych-uvelbjw completes the activity by him/herself with no assistance from a helper. 5-Set-up or Clean-up Assistance-helper sets up or cleans up; patient completes activity. [place] assists only prior to or following the activity. 4-Supervision or Touching Assistance-helper provides verbal cues and/or touching/steadying and/or contact guard assistance as patient completes activity. Assistance may be provided throughout the activity or intermittently. 3-Partial/Moderate Assistance-helper does LESS THAN HALF the effort. [place] lifts, holds or supports trunk or limbs, but provides less than half the effort. 2-Substantial/Maximal Assistance-helper does MORE THAN HALF the effort. [place] lifts or holds trunk or limbs and provides more than half the effort. 6-Dipxuualp-tcaaaf does ALL the effort. Patient does none of the effort to complete the activity. Or, the assistance of 2 or more helpers is required for the patient to complete the activity. If activity was not attempted, code reason: 7-Patient Refused. 9-Not Applicable-not attempted and the patient did not perform the activity before the current illness, exacerbation or injury. 10-Not Attempted due to Environmental Limitations-(lack of equipment, weather restraints, etc.). 88-Not Attempted due to Medical Conditions or Safety Concerns. Self Care: Independent Functional Cognition: Independent DME/Equipment: Bath Chair, Shower Drive Self: Yes OT Current Status Subjective Pt reports pain as 7/10 and c/o nausea/dry heaving all morning. RN aware. Appearance Pt left sitting in chair, all needs within reach at end of session. Mental Status/Objective Patient Orientation: Person, Place, Situation Attachments: IV Current Upper Extremity ROM WFL ADL-Treatment On/Off Footwear (QC): 1 Toileting Hygiene (QC): 4 (CGA) Pt sitting in chair, reports nausea and dry heaving. Still agreeable to treatment. Able to doff socks with extra effort/time by bending at waist. Unable to perform cross over method. OT donned socks due to increased nausea and pain with task. Sit<>stand with min A for initial boost. Extra time to extend trunk/hips. Pt ambulated to/from bathroom with CGA-min a and use of walker. Slow gait with short strides. Cues for walker management as pt has tendency to push walker too far forward as well as cues for upright posture. She lowered to toilet with min a. Cues to utilize grab bar as pt has tendency to "plop." Attempt at urinating, pt unsuccessful. She stood with grab bar and CGA. Able to maintain balance with 0-1 UE support and CGA during clothing management. Returned to chair with same assist mentioned prior. Cues for attention/safety with IV line. Anticipate improved performance in adls once pain/nausea subsides. Education OT Patient Education: Correct positioning, Energy conservation, Modified ADL techniques, Progress toward Goal/Update tx plan, Purpose of tx/functional activities, Reviewed precautions, Rehab process, Safety issues, Transfer techniques, Use of adapted equipment Teaching Recipient: Patient, Family Teaching Methods: Demonstration, Discussion Response to Teaching: Verbalize Understanding, Return Demonstration, Reinforcement Needed OT Correction Goals Correction Goals Time Frame: Aug 17, 2021 Oral Hygiene (QC): 6 Toileting Hygiene (QC): 4 (SBA) Lower Body Dressing (QC): 4 (SBA) On/Off Footwear (QC): 4 1=Demonstrate adherence to instructed precautions during ADL tasks. 2=Patient will verbalize/demonstrate understanding of assistive devices/modifications for ADL. 3=Patient will improve strength/tolerance for activity to enable patient to perform ADL's. OT Education/Plan Problem List/Assessment Assessment: Decreased Activ Tolerance, Impaired Funct Balance, Impaired I ADL's, Impaired Self-Care Skills Discharge Recommendations Plan/Recommendations: Continue POC Target Placement ongoing assessment, anticipate Home with family support once pain subsides. Treatment Plan/Plan of Care Treatment,Training & Education: Yes Patient would benefit from OT for education, treatment and training to promote independence in ADL's, mobility, safety and/or upper extremity function for ADL's. Plan of Care: ADL Retraining, Functional Mobility, UE Funct Exercise/Act Treatment Duration: Aug 17, 2021 Frequency: 5 times per week Estimated Hrs Per Day: .25 hour per day Agreement: Yes Rehab Potential: Good Time/GCodes Start Time: 10:25 Stop Time: 10:49 Total Time Billed (hr/min): 24 Billed Treatment Time 1 visit, EVM (10 min) ADL (14 min) Lana Arce OT Aug 10, 2021 12:05
--- NOTE | 2021-08-10 14:28 | Physical Therapy Daily Note ---
PT Daily Note-Current Subjective Patient reports she is unable to take pain pill due to nausea and inability to eat. Mental Status Patient Orientation: Normal For Age Attachments: IV Transfers SCALE: Activities may be completed with or without assistive devices. 6-Zitewwjbzc-icfcagy completes the activity by him/herself with no assistance from a helper. 5-Set-up or Clean-up Assistance-helper sets up or cleans up; patient completes activity. [place] assists only prior to or following the activity. 4-Supervision or Touching Assistance-helper provides verbal cues and/or touching/steadying and/or contact guard assistance as patient completes activity. Assistance may be provided throughout the activity or intermittently. 3-Partial/Moderate Assistance-helper does LESS THAN HALF the effort. [place] lifts, holds or supports trunk or limbs, but provides less than half the effort. 2-Substantial/Maximal Assistance-helper does MORE THAN HALF the effort. [place] lifts or holds trunk or limbs and provides more than half the effort. 9-Wuviulbcz-curqjj does ALL the effort. Patient does none of the effort to complete the activity. Or, the assistance of 2 or more helpers is required for the patient to complete the activity. If activity was not attempted, code reason: 7-Patient Refused. 9-Not Applicable-not attempted and the patient did not perform the activity before the current illness, exacerbation or injury. 10-Not Attempted due to Environmental Limitations-(lack of equipment, weather restraints, etc.). 88-Not Attempted due to Medical Conditions or Safety Concerns. Sit to Stand (QC): 4 (SBA) Chair/Xrp-kc-Nyajv Xfer(QC): 4 (SBA) Gait Training Does the Patient Walk?: Yes Distance: 250' Walk 10 feet (QC): 4 (SBA) Walk 50 ft with 2 Turns(QC): 4 (SBA) Walk 150 ft (QC): 4 (SBA) Gait Assistive Device: FWW slow, steady, antalgic gait sequence Exercises Seated Therapy Exercises: Ankle pumps, Long arc quads, Hip flexion Seated Reps: 15 Assessment Patient tolerated treatment well and is up in recliner eating lunch. PT encouraged patient to increase exercises independently to improve mobility. Patient voices understanding. PT Senior Care Goals Business Architect Goals PT Business Architect Goals Time Frame: Aug 23, 2021 Roll Left & Right (QC): 6 Sit to Lying (QC): 6 Lying-Sitting on Side/Bed(QC): 6 Sit to Stand (QC): 6 Chair/Hom-tr-Cpvlx Xfer(QC): 5 Toilet Transfer (QC): 5 Car Transfer (QC): 5 Does the Patient Walk: Yes Walk 10 feet (QC): 5 Walk 50ft with 2 Turns (QC): 5 Walk 150 ft (QC): 5 1 Step (curb) (QC): 4 4 Steps (QC): 4 Does the Pt use WC or Scooter?: No PT Plan Treatment/Plan Treatment Plan: Continue Plan of Care Treatment Plan: Bed Mobility, Education, Functional Activity [place], Functional Strength, Group Therapy, Gait, Safety, Therapeutic Exercise, Transfers Treatment Duration: Oct 25, 2021 Frequency: 11 times per week Time/GCodes Time In: 1324 Time Out: 1347 Total Billed Treatment Time: 23 Total Billed Treatment 1 visit EX 8 min GT 15 min STEPHEN ESCOBAR PT Aug 10, 2021 14:28
[2021-08-10 16:04] VITALS: BP 124/71
--- NOTE | 2021-08-10 17:34 | DISCHARGE SUMMARY ---
DATE OF SERVICE: DIAGNOSES: 1. Left knee primary osteoarthritis. 2. Depression. 3. Hypertension. 4. Allergic rhinitis. PROCEDURE: Left total knee arthroplasty. SUMMARY: The patient is a 75-year-old female who underwent a left total knee arthroplasty on the day of admission. Postoperatively, she did well. At time of discharge, her wound was clean and dry. She had no calf tenderness. Negative Homans sign. She was tolerating diet well and tolerating pain with oral pain medication. CONDITION AT DISCHARGE: Good. DISCHARGE DIET: Regular. FOLLOWUP: Followup is in three weeks. Home physical therapy has been arranged. ACTIVITIES: Weightbearing as tolerated with walker as needed. DISCHARGE MEDICATIONS: Home medications, one aspirin per day for 30 days and Percocet as needed for pain. Job ID: [id number] DocumentID: [id number] Dictated Date: 08/10/2021 17:19:57 Photo Engraver Date: 08/10/2021 17:33:44 Dictated By: SOBEIDA VANN MD
[2021-08-10 19:45] VITALS: BP 135/76
[2021-08-11 00:05] VITALS: BP 156/80
[2021-08-11] MEDS: NS IV 1000 ML 1,000 ML IV SCH (01:41)
[2021-08-11] MEDS: oxyCODONE/APAP 5/325MG (PERCOCET 5) TABLET PO PRN ×3 (03:32→10:40)
[2021-08-11] MEDS: ONDANSETRON 4 MG/2 ML (SDV) Z0FRAN IVP PRN (03:37)
[2021-08-11 04:01] VITALS: BP 176/95
[2021-08-11 06:14] LABS: HEMOGLOBIN 11.1 g/dL (11.5-16.0)
[2021-08-11] MEDS: MULTIVIT W/MINERALS TAB (THERAGRAN M) PO SCH (06:24)
[2021-08-11] MEDS ORDERED: morphine INJ 4 MG/ML 1 ML (VIAL/SYRINGE) IVP PRN (07:00)
--- NOTE | 2021-08-11 07:01 | Progress Note ---
Standard Progress Note Progress Notes/Assess & Plan Date Seen by a Provider: Aug 11, 2021 Time Seen by a Provider: 07:00 Progress/Assessment & Plan post op check no complaints radiographs--HW well positioned without fracture LLE--2 plus DP pulse with brisk cap refill. Intact DF and PF of toes and ankle with intact sensation to light touch throughout s/p LTKA mobilize as able Final Diagnosis no complaints Vital Signs Date Time Temp Pulse Resp B/P (MAP) Pulse Ox O2 Delivery O2 Flow Rate FiO2 08/11/21 04:01 36.8 91 18 176/95 (122) 99 Nasal Cannula 2.00 08/11/21 00:05 37.2 91 18 156/80 (105) 96 Nasal Cannula 2.00 08/10/21 20:25 18 08/10/21 20:00 Room Air 08/10/21 19:45 37.4 105 18 135/76 (95) 93 Nasal Cannula 2.00 08/10/21 16:04 37.2 91 18 124/71 (88) 90 Room Air 08/10/21 11:47 36.8 86 17 144/71 (95) 94 Nasal Cannula 2.00 08/10/21 08:09 37.1 90 16 144/69 (94) 97 Nasal Cannula 2.00 08/10/21 08:00 Room Air 08/10/21 07:36 Nasal Cannula 2.00 I & O 08/11/21 06:59 Intake Total 2600 ml Balance 2600 ml Laboratory Tests Test 08/11/21 05:56 Range/Units Hemoglobin 11.1 L 11.5-16.0 g/dL Hematocrit 33 L 35-52 % LLE--incision clean and dry. No calf tenderness. Neg Alan's s/p LTKA doing well DC after PT today SOBEIDA VANN MD Aug 11, 2021 07:01
[2021-08-11 08:00] VITALS: BP 131/67
[2021-08-11] MEDS: ENOXAPARIN 30 MG/0.3 ML (LOVENOX) SYR SC SCH (09:31)
[2021-08-11] MEDS: amLODIPine 10 MG (NORVASC) TAB PO SCH (09:32)
[2021-08-11] MEDS: ASPIRIN E.C. 81 MG (ECOTRIN) TAB PO SCH (09:32)
[2021-08-11] MEDS: SENNA W/DOCUSATE (SENOKOT S) TABLET PO SCH (09:32)
[2021-08-11] MEDS: LOSARTAN 100 MG (COZAAR) TABLET PO SCH (09:32)
--- NOTE | 2021-08-11 09:33 | Physical Therapy Daily Note ---
PT Daily Note-Current Subjective Patient agrees to PT. Spouse present. Mental Status Patient Orientation: Normal For Age Transfers SCALE: Activities may be completed with or without assistive devices. 2-Hhhjqadpaj-depbcop completes the activity by him/herself with no assistance from a helper. 5-Set-up or Clean-up Assistance-helper sets up or cleans up; patient completes activity. [place] assists only prior to or following the activity. 4-Supervision or Touching Assistance-helper provides verbal cues and/or touching/steadying and/or contact guard assistance as patient completes activity. Assistance may be provided throughout the activity or intermittently. 3-Partial/Moderate Assistance-helper does LESS THAN HALF the effort. [place] lifts, holds or supports trunk or limbs, but provides less than half the effort. 2-Substantial/Maximal Assistance-helper does MORE THAN HALF the effort. [place] lifts or holds trunk or limbs and provides more than half the effort. 4-Jsywotlzs-uetpzr does ALL the effort. Patient does none of the effort to complete the activity. Or, the assistance of 2 or more helpers is required for the patient to complete the activity. If activity was not attempted, code reason: 7-Patient Refused. 9-Not Applicable-not attempted and the patient did not perform the activity before the current illness, exacerbation or injury. 10-Not Attempted due to Environmental Limitations-(lack of equipment, weather restraints, etc.). 88-Not Attempted due to Medical Conditions or Safety Concerns. Lying to Sitting/Side of Bed(Q: 6 Sit to Stand (QC): 6 Chair/Tvx-ex-Ravdk Xfer(QC): 6 Toilet Transfer (QC): 6 Gait Training Does the Patient Walk?: Yes Distance: 200' x 2 Walk 10 feet (QC): 6 Walk 50 ft with 2 Turns(QC): 6 Walk 150 ft (QC): 6 Gait Assistive Device: FWW steady, reciprocal pattern Stair Training Stair Training: Handrails/: 1 handrail, uses walker #of Steps: 4 1 Step (curb) (QC): 4 4 Steps (QC): 4 Stairs: Pattern: Step to SBA with spouse present for education Exercises Supine Ex: Ankle pumps, Quad Set, Heel Slides, Straight leg raise Supine Reps: 15 Seated Therapy Exercises: Long arc quads Seated Reps: 15 Assessment Current Status: Excellent Progress Patient to dismiss to home this a.m. Patient progressing with treatment plan. PT instructed patient and spouse to perform HEP issued by physician. PT Stonemason Supervisor Goals Group Home Goals PT Stonemason Supervisor Goals Time Frame: Aug 23, 2021 Roll Left & Right (QC): 6 Sit to Lying (QC): 6 Lying-Sitting on Side/Bed(QC): 6 Sit to Stand (QC): 6 Chair/Bbj-pf-Wyvct Xfer(QC): 5 Toilet Transfer (QC): 5 Car Transfer (QC): 5 Does the Patient Walk: Yes Walk 10 feet (QC): 5 Walk 50ft with 2 Turns (QC): 5 Walk 150 ft (QC): 5 1 Step (curb) (QC): 4 4 Steps (QC): 4 Does the Pt use WC or Scooter?: No PT Plan Treatment/Plan Treatment Plan: Discontinue PT, goals met Treatment Plan: Bed Mobility, Education, Functional Activity [place], Functional Strength, Group Therapy, Gait, Safety, Therapeutic Exercise, Transfers Treatment Duration: Oct 25, 2021 Frequency: 11 times per week Time/GCodes Time In: 720 Time Out: 750 Total Billed Treatment Time: 30 Total Billed Treatment 1 visit EX 10 min FA 20 min STEPHEN ESCOBAR PT Aug 11, 2021 09:33
[2021-08-11 11:20] VITALS: BP 131/67
--- NOTE | 2021-08-11 12:01 | Physical Therapy Daily Note ---
PT Daily Note-Current Subjective Patient currently reports 3/10 pain in left knee. Notes that when she is on the CPM, "it hurts at first, but then feels better when it loosens up." Transfers SCALE: Activities may be completed with or without assistive devices. 5-Sfxvylcemm-cdmhvdu completes the activity by him/herself with no assistance from a helper. 5-Set-up or Clean-up Assistance-helper sets up or cleans up; patient completes activity. [place] assists only prior to or following the activity. 4-Supervision or Touching Assistance-helper provides verbal cues and/or touching/steadying and/or contact guard assistance as patient completes activity. Assistance may be provided throughout the activity or intermittently. 3-Partial/Moderate Assistance-helper does LESS THAN HALF the effort. [place] lifts, holds or supports trunk or limbs, but provides less than half the effort. 2-Substantial/Maximal Assistance-helper does MORE THAN HALF the effort. [place] lifts or holds trunk or limbs and provides more than half the effort. 9-Xqtspepim-ptidrn does ALL the effort. Patient does none of the effort to complete the activity. Or, the assistance of 2 or more helpers is required for the patient to complete the activity. If activity was not attempted, code reason: 7-Patient Refused. 9-Not Applicable-not attempted and the patient did not perform the activity before the current illness, exacerbation or injury. 10-Not Attempted due to Environmental Limitations-(lack of equipment, weather restraints, etc.). 88-Not Attempted due to Medical Conditions or Safety Concerns. Roll Left & Right (QC): 6 Sit to Lying (QC): 3 Lying to Sitting/Side of Bed(Q: 5 Sit to Stand (QC): 5 Chair/Mou-nc-Iylnp Xfer(QC): 5 Gait Training Does the Patient Walk?: Yes Distance: 10 Walk 10 feet (QC): 4 Gait Assistive Device: FWW Treatments Visit, FA (2) Assessment Current Status: Good Progress Patient received home CPM unit, set the unit up for the patient and ran it th rough numerous cycles to ensure proper fit and good movement without any rubbing or pain. Patients was educated in donning/doffing and basic use of the remote. He was advised to contact referring Physician for any questions and to determine specific settings, however initial settings were placed at 0 degrees extension and 80 degrees flexion. Patient in bed post treatment with in the room, all needs met, and nurse notified that patient was ready for D/C. PT Neuropsychology Service Director Goals Neuropsychology Service Director Goals PT Neuropsychology Service Director Goals Time Frame: Aug 23, 2021 Roll Left & Right (QC): 6 (met) Sit to Lying (QC): 6 Lying-Sitting on Side/Bed(QC): 6 Sit to Stand (QC): 6 Chair/Fxa-sx-Ttocb Xfer(QC): 5 (met) Toilet Transfer (QC): 5 (met) Car Transfer (QC): 5 Does the Patient Walk: Yes Walk 10 feet (QC): 5 Walk 50ft with 2 Turns (QC): 5 Walk 150 ft (QC): 5 1 Step (curb) (QC): 4 4 Steps (QC): 4 Does the Pt use WC or Scooter?: No PT Plan Problem List Problem List: Activity Tolerance, Functional Strength, Safety Treatment/Plan Treatment Plan: Discontinue PT Treatment Plan: Bed Mobility, Education, Functional Activity [place], Functional Strength, Group Therapy, Gait, Safety, Therapeutic Exercise, Transfers Treatment Duration: Oct 25, 2021 Frequency: 11 times per week Safety Risks/Education Patient Education: Gait Training, Transfer Techniques, Reviewed Precautions Teaching Recipient: Patient, Family Teaching Methods: Demonstration, Discussion Response to Teaching: Verbalize Understanding, Return Demonstration Time/GCodes Time In: 1020 Time Out: 1050 Total Billed Treatment Time: 30 Total Billed Treatment Visit, FA (2) VIJAY ANTOINE PT Aug 11, 2021 12:01
== END 2021-08-11 11:20 | disposition home health service (06) | DRG 470 ==
LOC: 4TH 06:06 → SURG 06:07 → 4TH 10:25
PROVIDERS: ADMIT Orthopaedic Surgery; ATTEND Orthopaedic Surgery
PROC: 0SRD0J9 Replacement of Left Knee Joint with Synthetic Substitute, Cemented, Open Approach (ICD-10-PCS; principal; 2021-08-09 07:40)
DX: M17.12 Unilateral primary osteoarthritis, left knee (principal); I10 Essential (primary) hypertension; F32.A Depression, unspecified; Z87.891 Personal history of nicotine dependence; G43.909 Migraine, unspecified, not intractable, without status migrainosus; F41.9 Anxiety disorder, unspecified; J30.9 Allergic rhinitis, unspecified
CPT/HCPCS: 36415; 73560; 85014; 85018; 86850; 86900; 86901

== ENCOUNTER → 2021-10-06 | Outpatient (CLI) | payer MEDICARE, OTHER ==
[~2021-10-06] MED LIST changes: -POTA10TA36 PO; +POTA10TA37 PO
--- NOTE | 2021-10-06 15:47 | Diagnostic Imaging Report ---
INDICATION: Routine screening. Comparison is made with prior mammogram 09/20/2020 and 08/04/2019. 2-D and 3-D bilateral screening mammography was performed with CAD. Both breasts are heterogeneously dense, limiting the sensitivity of mammography. Circumscribed nodule in the medial left breast appears stable. There are benign calcifications bilaterally. No spiculated mass or malignant-appearing microcalcifications are seen. Axillae are unremarkable. IMPRESSION: No mammographic features suspicious for malignancy are identified. BI-RADS Category 2 ACR BI-RADS Category 2: Benign findings. Result letter will be mailed to the patient. Note: At least 10% of breast cancer is not imaged by mammography. Dictated by: Dictated on workstation # [id number]
== END ==
LOC: RAD 10:30
PROVIDERS: ATTEND Family Medicine
DX: Z12.31 Encounter for screening mammogram for malignant neoplasm of breast (principal)
CPT/HCPCS: 77063; 77067

== ENCOUNTER → 2022-10-23 | Outpatient (CLI) | payer MEDICARE, OTHER ==
[~2022-10-23] MED LIST changes: +POTA-177 PO; -POTA10TA37 PO
--- NOTE | 2022-10-23 19:40 | Diagnostic Imaging Report ---
Indication: Routine screening. Comparison is made with prior mammograms with 10/06/2021 and 09/20/2020. 2-D and 3-D bilateral screening mammography was performed with CAD. Both breasts are heterogeneously dense, limiting the sensitivity of mammography. Circumscribed nodule medial left breast is stable. No mass or malignant-appearing microcalcifications are seen. There are benign calcifications bilaterally. Axillae are unremarkable. IMPRESSION: BI-RADS Category 2 No mammographic features suspicious for malignancy are identified. ACR BI-RADS Category 2: Benign findings. Result letter will be mailed to the patient. Note: At least 10% of breast cancer is not imaged by mammography. Dictated by: Dictated on workstation # [id number]
== END ==
LOC: RAD 13:11
PROVIDERS: ATTEND Family Medicine
DX: Z12.31 Encounter for screening mammogram for malignant neoplasm of breast (principal)
CPT/HCPCS: 77063; 77067